=== PATIENT | male | born 1960 | race Caucasian/White ===

== ENCOUNTER → 2019-10-03 | Outpatient (CLI) | payer OTHER ==
[2019-10-03 09:41] LABS: CREATININE 0.9 mg/dL (0.7-1.3)
== END ==
LOC: MRI 08:56
PROVIDERS: ATTEND Ophthalmology
DX: D48.5 Neoplasm of uncertain behavior of skin (principal); J32.3 Chronic sphenoidal sinusitis

== ENCOUNTER 2019-10-09 06:10 | Day surgery (SDC) | payer OTHER ==
[~2019-10-09] VITALS: Ht 175.3 cm; Wt 146.1 kg
[~2019-10-09 06:10] MED LIST: LISINOPRIL20 MG PO; LORATIDINE 10 M10 M1 PO
[2019-10-09 08:37] VITALS: BP 133/57
--- NOTE | 2019-10-13 06:19 | O ---
[facility] [place] [address] OPERATIVE REPORT Name: JOY BONILLA Room #: DEP [facility]..#: [id number] Admission: 10/09/19 Attend Phys: Juwan Brewster MD Discharge: 10/09/19 Date of : 56 Report #: [id number] THIS REPORT FOR: cc: Jason Meeks MD,Jason Brewster,Juwan Santo MD ~ CC: Jason Brewster DATE OF SERVICE: 10/09/2019 PREOPERATIVE DIAGNOSIS: Tumor of left medial canthus, upper lid, lower lid and glabella. POSTOPERATIVE DIAGNOSIS: Tumor of left medial canthus, upper lid, lower lid and glabella, basal cell carcinoma. PROCEDURE: Excision of tumor of left medial canthus, left lower lid, left upper lid and left glabella with myocutaneous flap repair of left lower lid defect, full-thickness skin graft from right upper lid to left medial canthus and upper lid, with left medial canthopexy. SURGEON: Juwan Brewster MD. BANK CLERK: None. ANESTHESIA: General. COMPLICATIONS: None. INDICATIONS FOR SURGERY: This pleasant 59-year-old gentleman has a large ulcerative nodular mass engulfing his entire left medial canthus that extends onto his lower lid, upper lid and his glabella. He presents today for excision of this lesion, which is thought to be a basal cell carcinoma with subsequent repair of that defect. Informed consent was obtained to include but not limited to the potential risk for loss of vision, bleeding, infection, failure to improve the problem, the potential need for further surgery or treatment. DESCRIPTION OF PROCEDURE: The patient was taken to the operating room where general anesthesia was administered. The left medial canthal, left lower lid, left upper lid, glabella, left cheek and right upper lid laterally were anesthetized with Xylocaine with epinephrine mixed with Marcaine and Wydase. The patient was subsequently prepped and draped in the usual sterile fashion. A [address] [address] OPERATIVE REPORT Name: JOY BONILLA Room #: [place] [facility] [place] [id number] Admission: 10/09/19 Attend Phys: Juwan Brewster MD Discharge: 10/09/19 Date of : 56 Report #: [id number] fine tip skin marking pen was then utilized to outline the lesion including 2-3 mm of normal appearing tissue around the entire lesion. The incision was then made with a 15 blade and the lesion excised en-bloc. The dissection inferiorly went across the angular artery, which made it somewhat challenging. The dissection was able to be accomplished though keeping the specimen intact 360 degrees. The entire medial canthus was excised including the medial commissure. This specimen was then oriented on a drawing for the waiting pathologist. She snap froze the specimen and found that while the medial most margin along the glabella was clear, she felt it was positive, inferiorly, laterally and superiorly. An ellipse of an additional 3 mm of tissue was then taken inferiorly across the entire wound. A similar 3 mm piece of tissue was taken across the entire superior portion of the wound. These were oriented for the pathologist on a drawing as the field was dried with monopolar cautery. She snap froze those specimens and felt that the margins were now clear, but made a comment about the tumor being extending deeper through to the bed of the inferior most portion of the dissection. That part of the field was an air. There was no tissue in that area to excise. A myocutaneous flap was then developed inferolaterally in the left lower lid and cheek and hemostasis re-achieved. That flap was then advanced and secured with interrupted buried Vicryl sutures deep and then 6-0 plain gut sutures superficially. This left a defect in the left medial canthus that extended onto the upper lid. A full thickness skin graft was then outlined in the lateral right upper lid with a fine tip skin marking pen. That skin graft was then harvested with a Delmi scissor and a Paufique forceps and subsequently taken utilizing thin section techniques. That donor site was then dried with monopolar cautery and closed with interrupted 6-0 chromic sutures and 6-0 plain gut sutures. The full thickness skin graft was then defatted. A medial canthopexy was accomplished anchoring the full-thickness skin graft into the anterior limb of the medial canthal tendon ____ attached to the periosteum at the base of the nose lateral to the glabella. The canthopexy took well. The full thickness skin graft was then secured into its bed with interrupted 7-0 Vicryl sutures. It was drawn in such a manner as to allow it to attend to the 3-dimensional differences in the medial canthus and not web. The wounds were then cleaned and dressed with erythromycin ophthalmic ointment. The left medial canthal area was packed with multiple layers of Telfa pads, which were then held in place with one larger Telfa pad cut in the shape of an eye pad and 2 eye pads, which were held in place with silk tape and Mastisol. The upper lid was dressed with erythromycin ophthalmic ointment and a Telfa pad. The patient [address] [address] OPERATIVE REPORT Name: JOY BONILLA Room #: DEP [facility].#: [id number] Admission: 10/09/19 Attend Phys: Juwan Brewster MD Discharge: 10/09/19 Date of : 56 Report #: [id number] subsequently transported to the recovery area having tolerated the procedure well with no anesthetic or operative complications being noted. <ELECTRONICALLY SIGNED> By: Juwan Brewster MD 10/13/19 0619 [id number] Juwan Brewster MD /nt
--- NOTE | 2019-10-13 18:06 | PATH ---
[facility] [place] [address] PATHOLOGY RPT PROCEDURE Name: KEITH KNAPP Room #: [place]P [facility] [place].#: [id number] Admission: 10/09/19 Date of : 56 Discharge: 10/09/19 Report #: [id number] Path Case #: [id number] L[facility] Accession Number: [id number] . 01 Material submitted: . PART A: lid - LEFT LOWER LID UPPER LID MEDIAL CANTHUS LESION MONSE AT 12:00. Modifiers: left, lower, upper PART B: lid - ADDTIONAL INFERIOR LEFT LOWER LID. Modifiers: inferior, left, lower PART C: lid - ADDITIONAL LATERAL LEFT SUPERIOR LID. Modifiers: lateral, left, superior . 01 Clinical history: . PROBABLE BCCA,EXCISION LESION EYE FULL THICKNESS GRAFT C . 02 Frozen section diagnosis: . INTRAOPERATIVE CONSULTATION WITH FROZEN SECTION: (Dr. Carol Ann Vasquez) . FSA1. Left lower lid/upper lid/medial canthus, excision: - Superior to medial and medial margins negative. . FSB1. Inferior left lower lid additional, excision: - Negative for invasive carcinoma at en face margin. . FSC1. Lateral left superior additional, excision: - Negative for invasive carcinoma at en face margin. . These findings are discussed with Dr. Juwan Brewster and a written report is placed in the patient's chart. (IUV:mml; 10/09/2019) . . A. Received fresh from the OR, labeled, "Keith Knapp - Left lower lid/upper lid/medial canthus lesion frozen section marked at 12:00" is an irregularly-shaped skin excision measuring approximately 1.5 x 1.5 x 0.5 cm. The specimen is marked as superior lateral inferior and medial by Dr. Brewster. The lesion is present towards the lateral aspect of the specimen. At this point, the specimen is inked as follows: Superior to lateral is inked black, lateral to inferior is inked yellow, inferior to medial is inked blue, and medial to superior is inked green. The deep margin is inked black. The specimen is sectioned into four pieces and submitted for frozen section and submitted entirely as FSA1. This is subsequently submitted for permanent section as A1. . B. Received fresh from the [place], labeled, "Keith Knapp - Additional inferior left lower lid" is a thin strip of skin measuring approximately 1.6 x 0.3 x 0.2 cm. The lateral half of the specimen is inked yellow and the medial half of the specimen is inked blue. The specimen is submitted [address] [address] PATHOLOGY RPT PROCEDURE Name: KEITH KNAPP Room #: DEP [facility]#: [id number] Admission: 10/09/19 Date of : 56 Discharge: 10/09/19 Report #: [id number] Path Case #: [id number] en face for frozen section as FSB1, subsequently submitted for permanent section as B1. . C. Received fresh from the [place], labeled, "Keith Knapp - Additional lateral left superior" is a thin strip of skin measuring 1.7 x 0.3 x 0.2 cm. The lateral half of the specimen is inked black and the medial half of the specimen is inked green. The specimen is submitted en face for frozen section as FSC1, this is subsequently submitted for permanent section as C1. (IUV:mml; 10/09/2019) . . Frozen section performed at [facility], [address] , [place] [address]. IZV/QLM . 02 Diagnosis: A. Skin, left lower lid/upper lid/medial canthus lesion, excision: - INVASIVE BASAL CELL CARCINOMA. - EXTENDS TO DEEP MARGIN, SUPERO-LATERAL, INFERO-LATERAL, WELL INFERO-MEDIAL MARGINS. - Supero-medial margin free of malignancy. . B. Skin, additional inferior left lower lid, re-excision: - Negative for malignancy. - Mild chronic inflammation and folliculitis. . C. Skin, additional lateral left superior, re-excision: - Negative for malignancy. - Skin showing reactive changes. . (IUV:tree wrapper; 10/10/2019) [facility] 10/10/2019 1136 Local . 02 Comment: The tumor is noted extensively at the deep margin. This was discussed with Dr. Juwan Brewster intraoperatively. Due to frozen section artifact, definitive perineural invasion is not appreciated. An S-100 immunohistochemical stain is ordered on block A1 and the results of this will be reported in an addendum to follow. (IUV:tree wrapper; 10/10/2019) . 02 Addendum: . This addendum is issued subsequent to reviewing a properly controlled S-100 immunohistochemical stain performed on block A1. It shows focal perineural invasion present. The originally rendered diagnoses remain [facility] [place] [address] PATHOLOGY RPT PROCEDURE Name: KEITH KNAPP Room #: DEP [facility].#: [id number] Admission: 10/09/19 Date of : 56 Discharge: 10/09/19 Report #: [id number] Path Case #: [id number] unchanged. (IUV:tree wrapper; 10/13/2019) . Professional services performed by [facility] at [facility], [address] [place] [address],.[place] [address]. Technical services performed by [facility], [address] [place] [address], [address], [place] [address]. LBQ/10/13/2019 Addendum Electronically Signed by Carol Ann Vasquez MD, Pathologist . 02 Electronically signed: . Carol Ann Vasquez MD, Pathologist NPI- [id number] . 01 Gross description: . A. PLEASE SEE FROZEN SECTION GROSS DESCRIPTION . B. PLEASE SEE FROZEN SECTION GROSS DESCRIPTION . C. PLEASE SEE FROZEN SECTION GROSS DESCRIPTION /QLM 10/09/2019 1651 Local . 02 Pathologist provided ICD-10: C44.1192, C44.1191, L73.8, L08.9 . 02 CPT . 112271, 950369, 904841, 215375, [id number], [id number], [id number] Specimen Comment: A courtesy copy of this report has been sent to [phone], [phone] Specimen Comment: [phone], Specimen Comment: Report sent to ,DR CONNORS / DR HITCHCOCK Performed at: [address], [place], [place] [id number] MD Arsen Travis MD Phone: [phone] Performed at: [address] [id number] MD Carol Ann Vasquez MD Phone: [phone]
== END 2019-10-09 10:05 | disposition home or self-care (01) ==
LOC: OR → TBA 06:10 → OR 06:10 → TBA 06:11 → OR 07:21
PROVIDERS: ATTEND Ophthalmology
DX: C44.1192 Basal cell carcinoma of skin of left lower eyelid, including canthus (principal); C44.1191 Basal cell carcinoma of skin of left upper eyelid, including canthus; L73.8 Other specified follicular disorders; H01.8 Other specified inflammations of eyelid; I10 Essential (primary) hypertension; Z98.890 Other specified postprocedural states; Z79.899 Other long term (current) drug therapy; Z20.828 Contact with and (suspected) exposure to other viral communicable diseases; Z87.891 Personal history of nicotine dependence
CPT/HCPCS: 50010; 50101; 50386; 50398; 51636; 56531; 62110; 62850; 64037; 70005